=== PATIENT | male | born 1975 | race Two or more races ===

== ENCOUNTER 2023-10-19 00:48 | Emergency (ER) | payer OTHER ==
[~2023-10-19] VITALS: Ht 182.9 cm; Wt 86.5 kg
[2023-10-19 01:05] VITALS: BP 161/91; PULSE 114; RESP 16; O2SAT 94
== END 2023-10-19 02:51 | disposition left against medical advice (07) ==
LOC: ER 00:48
DX: Z48.00 Encounter for change or removal of nonsurgical wound dressing (principal); Z53.21 Procedure and treatment not carried out due to patient leaving prior to being seen by health care provider